=== PATIENT | female | born 1955 | race Caucasian/White ===

== ENCOUNTER 2019-11-02 18:17 | IRF | payer OTHER, SELFPAY ==
--- NOTE | 2019-11-02 18:10 | ADMGEN ---
This patient, Melany Ramírez, was admitted to [facility] Room 223-02. Patient/family oriented to hospital policies and general routines including ID bracelet, bed and alarms, visiting hours, pain management, procedures, bathroom and other care routines, personal items, smoking policy, room service/diet, and visiting hours. Valuables list has been completed. Information on how to activate the Rapid Response Team has been discussed. Patient/Family are encouraged to report perceived risks to care and to ask questions if they do not understand what they are told or what they should do.
[2019-11-02 18:28] VITALS: BMI 31.4
[2019-11-02 18:41] VITALS: BP 156/81; PULSE 75; RESP 20; TEMP 37; O2SAT 94
[2019-11-02 18:42] VITALS: BMI 31.4
[2019-11-02] MEDS: HEPARIN SODIUM 5,000 UNITS/ML VIAL 5000 UNITS SUB-Q (21:05)
[2019-11-02] MEDS: ROSUVASTATIN 10 MG TABLET PO (21:05)
[2019-11-02 22:00] VITALS: BP 158/77; PULSE 77; RESP 18; TEMP 37.4; O2SAT 98
[2019-11-02 22:25] VITALS: PULSE 80
[2019-11-02] MEDS: METOPROLOL TARTRATE 50 MG TAB PO (22:25)
[2019-11-02] MEDS: ACETAMINOPHEN 325 MG TABLET 650 MG PO (22:28)
[2019-11-03 05:07] LABS: Basophils Percent Auto 0.5 % (0.2-1.2); Eosinophils Absolute Auto 0.1 K/mm3 (0-0.3); Hematocrit 29.6 % (37.0-47.0); Hemoglobin 9.5 g/dL (12.0-15.0); Immature Granulocyte Absolute 0.02 K/mm3 (0.00-0.031); Immature Granulocyte Percent A 0.3 % (0-0.5); Lymphocytes Absolute Auto 1.16 K/mm3 (0.9-3.2); Lymphocytes Percent Auto 19.3 % (18.3-44.2); Mean Corpuscular HGB Conc 32.1 g/dl (32-36); Mean Corpuscular Hemoglobin 32.8 pg (26-34); Mean Corpuscular Volume 102.1 fl (80-100); Mean Platelet Volume 10.2 fl (7.4-10.4); Monocytes Absolute Auto 0.5 K/mm3 (0.1-0.6); Monocytes Percent Auto 7.7 % (2.6-8.5); Neutrophils Absolute Auto 4.2 K/mm3 (1.3-6.7); Neutrophils Percent Auto 70.2 % (45.5-73.1); Platelet Count Result 445 k/mm3 (150-375); Red Cell Distribution Width 13.1 % (11.5-14.5)
[2019-11-03 05:23] LABS: Blood Urea Nitrogen 15 mg/dL (7-17); Calcium 8.6 mg/dL (8.4-10.2); Carbon Dioxide 28 mmol/L (22-30); Chloride 105 mmol/L (98-107); Estimated CRCL calculation 50 ml/min; Estimated Glomerular Filt Rate 50; Glucose 96 mg/dL (65-105); Sodium 140 mmol/L (137-145)
[2019-11-03] MEDS: ACETAMINOPHEN 325 MG TABLET 650 MG PO ×3 (05:53→17:20)
[2019-11-03] MEDS: HEPARIN SODIUM 5,000 UNITS/ML VIAL 5000 UNITS SUB-Q ×3 (05:54→20:11)
[2019-11-03 06:00] VITALS: BP 132/70; PULSE 72; RESP 18; TEMP 36.8; O2SAT 97
[2019-11-03 08:00] VITALS: PULSE 72; RESP 18; O2SAT 97
[2019-11-03 08:15] VITALS: PULSE 72
[2019-11-03] MEDS: ASPIRIN 81 MG CHEWABLE TABLET PO (08:15)
[2019-11-03] MEDS: SERTRALINE HCL 50 MG TABLET PO (08:15)
[2019-11-03] MEDS: CHLORHEXIDINE GLUCONATE 0.12% ORAL RINSE 473 ML BTL (*BKC) 15 ML SWISH/SPIT ×2 (08:15→17:19)
[2019-11-03] MEDS: DOCUSATE SODIUM 100 MG CAPSULE PO (08:15)
[2019-11-03] MEDS: METOPROLOL TARTRATE 50 MG TAB PO ×2 (08:15→20:10)
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
[2019-11-03 12:51] VITALS: BMI 31.4
[2019-11-03] MEDS: POTASSIUM CHLORIDE 10 MEQ TABLET PO (13:57)
[2019-11-03 14:00] VITALS: BP 147/66; PULSE 64; RESP 20; TEMP 37.1; O2SAT 98
[2019-11-03 20:10] VITALS: PULSE 80
[2019-11-03] MEDS: ROSUVASTATIN 10 MG TABLET PO (20:11)
[2019-11-03 21:49] VITALS: BP 149/73; PULSE 69; RESP 16; TEMP 36.7; O2SAT 98
[2019-11-04] MEDS: ACETAMINOPHEN 325 MG TABLET 650 MG PO ×4 (00:14→16:57)
[2019-11-04] MEDS: HEPARIN SODIUM 5,000 UNITS/ML VIAL 5000 UNITS SUB-Q ×3 (05:25→20:13)
[2019-11-04 06:00] VITALS: BP 145/78; PULSE 81; RESP 16; TEMP 36.6; O2SAT 99
[2019-11-04 08:00] VITALS: PULSE 81
[2019-11-04] MEDS: DOCUSATE SODIUM 100 MG CAPSULE PO (08:00)
[2019-11-04] MEDS: METOPROLOL TARTRATE 50 MG TAB PO ×2 (08:00→20:13)
[2019-11-04] MEDS: POTASSIUM CHLORIDE 20 MEQ TABLET.ER PO (08:00)
[2019-11-04] MEDS: SERTRALINE HCL 50 MG TABLET PO (08:01)
[2019-11-04] MEDS: ASPIRIN 81 MG CHEWABLE TABLET PO (08:01)
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
[2019-11-04] MEDS: FENOFIBRATE,MICRONIZED 48 MG TABLET PO (11:37)
[2019-11-04] MEDS: CHLORHEXIDINE GLUCONATE 0.12% ORAL RINSE 473 ML BTL (*BKC) 15 ML SWISH/SPIT ×2 (11:37→16:58)
--- NOTE | 2019-11-04 12:26 | WPDNEURORHBP ---
Subjective Date/time seen: 11/04/19 12:26 Interval history: this 64-year-old woman is here after having had traumatic intracranial hemorrhage / brain contusion along with C2, C3, C4 fracture, bilateral rib fractures and sternal fracture and multiple complications post and injury which have been summarized in my initial history and physical examination The patient has today is definitely better and more lucid more alert however unable to recall the previous events she denies any headache nausea vomiting chest pain shortness of fever chills or sore throat Review of Systems Review of Systems: All systems reviewed & are unremarkable except as noted in HPI and below Functional Status Ambulation Ability Ability to Ambulate 10 Feet: Minimum Assistance X 1 Ability to Ambulate 50 Feet With 2 Turns: Minimum Assistance X 1 Ability to Ambulate 150 Feet: Minimum Assistance X 1 Ambulation Assistive Devices: Railings Transfers Ability Ability to Transfer In/Out of Chair: Minimum Assistance X 1 Exam Const: General: comfortable and no acute distress HENMT: General nose exam: Normal nares present Mouth: Yes moist mucous membranes Eyes: General: appearance normal, both eyes and all related structures Neck: Neck: no JVD Resp: Effort & Inspection: normal respiratory effort Auscultation: clear to auscultation bilaterally Cardio: Rate: regular rate Rhythm: regular rhythm GI: GI Palp: Yes Soft to palpation Auscultation: normal bowel sounds Skin: General skin exam: normal color and no rashes or lesions noted Neuro: Other: patient is awake alert oriented x3 however does not have any recollection of the events happening after the injury; she is generally weak and fatigued and has pains but overall better and engage in therapy and working with it Extrem: General: normal to inspection Other: she has right thumb spica and also I little sutures in her right forearm which will need to come out any effusion Psych: Mental Status: mental status grossly normal Objective Data Vital Signs Vital Signs: Vital Signs - 24 hr 11/03/19 14:00 11/03/19 20:10 11/03/19 21:49 Temperature 37.1 C 36.7 C Pulse Rate 64 80 69 Respiratory Rate 20 16 Blood Pressure 147/66 H 149/73 H Pulse Oximetry 98 98 11/04/19 06:00 11/04/19 08:00 Temperature 36.6 C Pulse Rate 81 81 Respiratory Rate 16 Blood Pressure 145/78 H Pulse Oximetry 99 Intake/Output Intake/Output: Intake & Output 11/01/19 11/02/19 11/03/19 11/04/19 23:59 23:59 23:59 23:59 Intake Total 960 120 Balance 960 120 Meds/Results Medications: Active Medications Generic Name Dose Route Start Last Admin Trade Name Freq PRN Reason Stop Dose Admin Acetaminophen 650 mg 11/02/19 21:50 11/04/19 11:39 Tylenol Tablet PO 650 mg Q6HR LEWIS Administration Aspirin 81 mg 11/03/19 08:00 11/04/19 08:01 Aspirin Chewable PO 81 mg DAILY@0800 LEWIS Administration Chlorhexidine Gluconate 15 ml 11/03/19 09:00 11/04/19 11:37 Peridex SWISH/SPIT 15 ml BID [facility] Administration Docusate Sodium 100 mg 11/03/19 09:00 11/04/19 08:00 Colace Capsule PO 100 mg DAILY LEWIS Administration Fenofibrate 48 mg 11/04/19 09:00 11/04/19 11:37 Tricor PO 12/03/19 09:01 48 mg DAILY LEWIS Administration Heparin Sodium (Porcine) 5,000 units 11/02/19 22:00 11/04/19 05:25 Heparin Sodium SUB-Q 5,000 units Q8HR LEWIS Administration Metoprolol Tartrate 50 mg 11/02/19 21:50 11/04/19 08:00 Lopressor PO 50 mg Q12HR LEWIS Administration Oxycodone HCl 5 mg 11/02/19 19:33 11/04/19 11:37 Roxicodone Ir Tablet PO 5 mg Q4H PRN Administration Pain Polyethylene Glycol 17 gm 11/02/19 19:41 Miralax PO DAILY PRN CONSTIPATION Potassium Chloride 20 meq 11/04/19 08:00 11/04/19 08:00 Kcl Tablet PO 20 meq DAILY@0800 LEWIS Administration Rosuvastatin Calcium 10 mg 11/02/19 21:00 11/03/19 20:11 Crestor PO 10 mg H
[2019-11-04 14:00] VITALS: BP 139/70; PULSE 65; RESP 20; TEMP 36.6; O2SAT 99
[2019-11-04 20:13] VITALS: PULSE 80
[2019-11-04] MEDS: ROSUVASTATIN 10 MG TABLET PO (20:13)
[2019-11-04 22:00] VITALS: BP 138/74; PULSE 70; RESP 16; TEMP 36.4; O2SAT 96
[2019-11-05] MEDS: HEPARIN SODIUM 5,000 UNITS/ML VIAL 5000 UNITS SUB-Q ×3 (05:35→21:11)
[2019-11-05] MEDS: ACETAMINOPHEN 325 MG TABLET 650 MG PO ×3 (05:36→17:42)
[2019-11-05 06:00] VITALS: BP 153/85; PULSE 72; RESP 16; TEMP 36.5; O2SAT 95
[2019-11-05 08:00] VITALS: PULSE 83; RESP 16; O2SAT 96
[2019-11-05] MEDS: ASPIRIN 81 MG CHEWABLE TABLET PO (09:57)
[2019-11-05] MEDS: CHLORHEXIDINE GLUCONATE 0.12% ORAL RINSE 473 ML BTL (*BKC) 15 ML SWISH/SPIT ×2 (09:57→17:41)
[2019-11-05] MEDS: POTASSIUM CHLORIDE 20 MEQ TABLET.ER PO (09:57)
[2019-11-05 09:58] VITALS: PULSE 72
[2019-11-05] MEDS: FENOFIBRATE,MICRONIZED 48 MG TABLET PO (09:58)
[2019-11-05] MEDS: METOPROLOL TARTRATE 50 MG TAB PO ×2 (09:58→21:10)
[2019-11-05] MEDS: DOCUSATE SODIUM 100 MG CAPSULE PO (09:58)
[2019-11-05] MEDS: SERTRALINE HCL 50 MG TABLET PO (09:59)
[2019-11-05 14:00] VITALS: BP 134/76; PULSE 83; RESP 16; TEMP 37; O2SAT 96
--- NOTE | 2019-11-05 16:20 | PCCCNOTE ---
On 11/05/19, the student, [Iron aBnsal ], provided care and completed [facility] documentation on this patient. I have reviewed the student's documentation and agree with the findings.
[2019-11-05 21:10] VITALS: PULSE 88
[2019-11-05] MEDS: ROSUVASTATIN 10 MG TABLET PO (21:10)
[2019-11-05 22:00] VITALS: BP 134/78; PULSE 74; RESP 16; TEMP 36.3; O2SAT 97
[2019-11-06 06:00] VITALS: BP 146/72; PULSE 72; RESP 16; TEMP 36.6; O2SAT 96
[2019-11-06] MEDS: ACETAMINOPHEN 325 MG TABLET 650 MG PO ×3 (06:34→17:49)
[2019-11-06] MEDS: HEPARIN SODIUM 5,000 UNITS/ML VIAL 5000 UNITS SUB-Q (06:35)
[2019-11-06 08:54] VITALS: PULSE 72
[2019-11-06] MEDS: POTASSIUM CHLORIDE 20 MEQ TABLET.ER PO (08:54)
[2019-11-06] MEDS: CHLORHEXIDINE GLUCONATE 0.12% ORAL RINSE 473 ML BTL (*BKC) 15 ML SWISH/SPIT ×2 (08:54→17:49)
[2019-11-06] MEDS: ASPIRIN 81 MG CHEWABLE TABLET PO (08:54)
[2019-11-06] MEDS: METOPROLOL TARTRATE 50 MG TAB PO ×2 (08:54→20:36)
[2019-11-06] MEDS: SERTRALINE HCL 50 MG TABLET PO (08:54)
[2019-11-06] MEDS: FENOFIBRATE,MICRONIZED 48 MG TABLET PO (08:54)
[2019-11-06] MEDS: DOCUSATE SODIUM 100 MG CAPSULE PO (08:59)
--- NOTE | 2019-11-06 13:09 | PCDIET ---
Nutrition Follow-Up Complete: Nutrition Diagnosis: Suboptimal oral intake related to decreased appetite as evidenced by patient statements, intake of 10% x 1. Nutrition Goal: Patient to consume 50% of meals or greater. Goal in progress. Average intake has been 36% of meals since 11/04/19 on soft and bite size diet. Patient receiving Thrive Ice Cream (270kcal, 9g protein) BID and reports taking consistently. Last recorded weight is 85.7 kg. Recommend obtaining new weight. Bowel Motility: Last documented BM on 11/04/19. Labs Reviewed: No new labs available. Meds Noted: Colace, Miralax, KCl Additional Notes: Lacerations to left eyebrow and right lower arm. Left upper torso incision. No documented pressure sores. Will continue to monitor with same goal. Nutrition Monitoring and Evaluation: Follow up every 5 days.
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
[2019-11-06 14:00] VITALS: BP 122/71; PULSE 77; RESP 18; TEMP 36.4; O2SAT 94
[2019-11-06 20:36] VITALS: PULSE 80
[2019-11-06] MEDS: ROSUVASTATIN 10 MG TABLET PO (20:36)
[2019-11-06 22:00] VITALS: BP 145/66; PULSE 70; RESP 18; TEMP 36.7; O2SAT 98
[2019-11-07 04:58] LABS: Blood Urea Nitrogen 10 mg/dL (7-17); Calcium 8.9 mg/dL (8.4-10.2); Carbon Dioxide 28 mmol/L (22-30); Chloride 105 mmol/L (98-107); Estimated CRCL calculation 54 ml/min; Estimated Glomerular Filt Rate 56; Glucose 111 mg/dL (65-105); Potassium 3.2 mmol/L (3.4-5.0); Sodium 141 mmol/L (137-145)
[2019-11-07] MEDS: ACETAMINOPHEN 325 MG TABLET 650 MG PO ×3 (05:48→17:34)
[2019-11-07 06:00] VITALS: BP 122/60; PULSE 76; RESP 16; TEMP 37.2; O2SAT 98
[2019-11-07 09:00] VITALS: PULSE 68; RESP 18; O2SAT 95
[2019-11-07 10:00] VITALS: PULSE 77
[2019-11-07] MEDS: FENOFIBRATE,MICRONIZED 48 MG TABLET PO (10:00)
[2019-11-07] MEDS: SERTRALINE HCL 50 MG TABLET PO (10:00)
[2019-11-07] MEDS: METOPROLOL TARTRATE 50 MG TAB PO ×2 (10:00→19:34)
[2019-11-07] MEDS: POTASSIUM CHLORIDE 20 MEQ TABLET.ER PO (10:00)
[2019-11-07] MEDS: ASPIRIN 81 MG CHEWABLE TABLET PO (10:00)
[2019-11-07] MEDS: CHLORHEXIDINE GLUCONATE 0.12% ORAL RINSE 473 ML BTL (*BKC) 15 ML SWISH/SPIT ×2 (10:01→17:33)
[2019-11-07] MEDS: DOCUSATE SODIUM 100 MG CAPSULE PO (10:01)
[2019-11-07 14:00] VITALS: BP 143/69; PULSE 68; RESP 18; TEMP 36.4; O2SAT 95
--- NOTE | 2019-11-07 16:15 | WPDNEURORHBP ---
Subjective Date/time seen: 11/07/19 16:15 Interval history: this 64-year-old woman is here with diagnosis of a brain contusion /intracranial hemorrhage and multiple fractures involving bilateral ribs and multiple issues related to rib fractures she is wearing the hard [place] cervical collar doing fairly well she denies any new neurological complaints 3 weakness is improving she is engage in therapy she denies in particular any headache nausea vomiting chest pain shortness of breath fever chills sore throat Review of Systems Review of Systems: All systems reviewed & are unremarkable except as noted in HPI and below Functional Status Ambulation Ability Ability to Ambulate 10 Feet: Contact Guard Ability to Ambulate 50 Feet With 2 Turns: Contact Guard Ability to Ambulate 150 Feet: Contact Guard Ambulation Assistive Devices: Cane Transfers Ability Ability to Transfer In/Out of Chair: Minimum Assistance X 1 Exam Const: General: comfortable and no acute distress HENMT: General nose exam: Normal nares present Mouth: Yes moist mucous membranes Eyes: General: appearance normal, both eyes and all related structures Neck: Neck: supple and no JVD Resp: Effort & Inspection: normal respiratory effort Auscultation: clear to auscultation bilaterally Cardio: Rate: regular rate Rhythm: regular rhythm GI: GI Palp: Yes Soft to palpation Auscultation: normal bowel sounds Skin: General skin exam: normal color and no rashes or lesions noted Neuro: Other: patient is awake alert well oriented time place person is speech and language functions are normal and her strength is improving Extrem: General: normal to inspection Psych: Mental Status: mental status grossly normal Objective Data Vital Signs Vital Signs: Vital Signs - 24 hr 11/06/19 20:36 11/06/19 22:00 11/07/19 06:00 Temperature 36.7 C 37.2 C Pulse Rate 80 70 76 Respiratory Rate 18 16 Blood Pressure 145/66 H 122/60 Pulse Oximetry 98 98 11/07/19 09:00 11/07/19 10:00 11/07/19 14:00 Temperature 36.4 C Pulse Rate 68 77 68 Respiratory Rate 18 18 Blood Pressure 143/69 H Pulse Oximetry 95 95 Intake/Output Intake/Output: Intake & Output 11/04/19 11/05/19 11/06/19 11/07/19 23:59 23:59 23:59 23:59 Intake Total 600 360 920 720 Balance 600 360 920 720 Meds/Results Medications: Active Medications Generic Name Dose Route Start Last Admin Trade Name Brenda PRN Reason Stop Dose Admin Acetaminophen 650 mg 11/02/19 21:50 11/07/19 12:34 Tylenol Tablet PO 650 mg Q6HR LEWIS Administration Aspirin 81 mg 11/03/19 08:00 11/07/19 10:00 Aspirin Chewable PO 81 mg DAILY@0800 [facility] Administration Chlorhexidine Gluconate 15 ml 11/03/19 09:00 11/07/19 10:01 Peridex SWISH/SPIT 15 ml BID [facility] Administration Docusate Sodium 100 mg 11/03/19 09:00 11/07/19 10:01 Colace Capsule PO 100 mg DAILY [facility] Administration Fenofibrate 48 mg 11/04/19 09:00 11/07/19 10:00 Tricor PO 12/03/19 09:01 48 mg DAILY [facility] Administration Metoprolol Tartrate 50 mg 11/02/19 21:50 11/07/19 10:00 Lopressor PO 50 mg Q12HR [facility] Administration Oxycodone HCl 5 mg 11/02/19 19:33 11/07/19 13:35 Roxicodone Ir Tablet PO 5 mg Q4H PRN Administration Pain Polyethylene Glycol 17 gm 11/02/19 19:41 Miralax PO DAILY PRN CONSTIPATION Potassium Chloride 20 meq 11/04/19 08:00 11/07/19 10:00 Kcl Tablet PO 20 meq DAILY@0800 [facility] Administration Rosuvastatin Calcium 10 mg 11/02/19 21:00 11/06/19 20:36 Crestor PO 10 mg HS [facility] Administration Sertraline HCl 50 mg 11/03/19 09:00 11/07/19 10:00 Zoloft PO 50 mg DAILY [facility]WIS Administration Labs Labs: Laboratory Results - last 24 hr 11/07/19 04:25 Sodium 141 Potassium 3.2 L Chloride 105 Carbon Dioxide 28 BUN 10 D Creatinine 1.00 Estim Creat Clear Calc 54 Estimated GFR 56 L Glucose 111 H Calcium 8.9 Progres
[2019-11-07 19:30] VITALS: BP 145/66; PULSE 80; RESP 18; TEMP 37.1; O2SAT 95
[2019-11-07 19:34] VITALS: PULSE 80
[2019-11-07] MEDS: ROSUVASTATIN 10 MG TABLET PO (19:34)
[2019-11-08] MEDS: ACETAMINOPHEN 325 MG TABLET 650 MG PO ×5 (00:02→23:51)
[2019-11-08 05:30] VITALS: BP 142/79; PULSE 74; RESP 18; TEMP 36.5; O2SAT 94
[2019-11-08] MEDS: ASPIRIN 81 MG CHEWABLE TABLET PO (08:42)
[2019-11-08] MEDS: SERTRALINE HCL 50 MG TABLET PO (08:43)
[2019-11-08] MEDS: FENOFIBRATE,MICRONIZED 48 MG TABLET PO (08:43)
[2019-11-08] MEDS: POTASSIUM CHLORIDE 20 MEQ TABLET.ER PO (08:43)
[2019-11-08] MEDS: METOPROLOL TARTRATE 50 MG TAB PO ×2 (08:43→20:06)
[2019-11-08] MEDS: DOCUSATE SODIUM 100 MG CAPSULE PO (08:47)
[2019-11-08 14:00] VITALS: BP 131/63; PULSE 71; RESP 17; TEMP 36.6; O2SAT 95
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
[2019-11-08] MEDS: CHLORHEXIDINE GLUCONATE 0.12% ORAL RINSE 473 ML BTL (*BKC) 15 ML SWISH/SPIT (18:26)
[2019-11-08 20:06] VITALS: PULSE 78
[2019-11-08] MEDS: ROSUVASTATIN 10 MG TABLET PO (20:06)
[2019-11-08 22:00] VITALS: BP 173/80; PULSE 81; RESP 16; TEMP 36.6; O2SAT 100
[2019-11-09] MEDS: ACETAMINOPHEN 325 MG TABLET 650 MG PO ×3 (05:29→17:26)
[2019-11-09 06:00] VITALS: BP 153/84; PULSE 77; RESP 18; TEMP 36.3; O2SAT 97
[2019-11-09] MEDS: POTASSIUM CHLORIDE 20 MEQ TABLET.ER PO (08:40)
[2019-11-09] MEDS: ASPIRIN 81 MG CHEWABLE TABLET PO (08:40)
[2019-11-09] MEDS: CHLORHEXIDINE GLUCONATE 0.12% ORAL RINSE 473 ML BTL (*BKC) 15 ML SWISH/SPIT ×2 (08:41→17:26)
[2019-11-09 08:42] VITALS: PULSE 77
[2019-11-09] MEDS: SERTRALINE HCL 50 MG TABLET PO (08:42)
[2019-11-09] MEDS: FENOFIBRATE,MICRONIZED 48 MG TABLET PO (08:42)
[2019-11-09] MEDS: METOPROLOL TARTRATE 50 MG TAB PO ×2 (08:42→20:05)
[2019-11-09] MEDS: DOCUSATE SODIUM 100 MG CAPSULE PO (08:44)
[2019-11-09 14:00] VITALS: BP 121/77; PULSE 72; RESP 16; TEMP 36.6; O2SAT 98
[2019-11-09 20:05] VITALS: PULSE 76
[2019-11-09] MEDS: ROSUVASTATIN 10 MG TABLET PO (20:06)
[2019-11-09 22:00] VITALS: BP 149/69; PULSE 76; RESP 18; TEMP 36.8; O2SAT 97
[2019-11-10] MEDS: ACETAMINOPHEN 325 MG TABLET 650 MG PO ×5 (02:37→23:32)
[2019-11-10 06:00] VITALS: BP 131/67; PULSE 67; RESP 18; TEMP 36.8; O2SAT 97
[2019-11-10 09:45] VITALS: PULSE 67
[2019-11-10] MEDS: ASPIRIN 81 MG CHEWABLE TABLET PO (09:45)
[2019-11-10] MEDS: POTASSIUM CHLORIDE 20 MEQ TABLET.ER PO (09:45)
[2019-11-10] MEDS: METOPROLOL TARTRATE 50 MG TAB PO ×2 (09:45→20:06)
[2019-11-10] MEDS: FENOFIBRATE,MICRONIZED 48 MG TABLET PO (09:46)
[2019-11-10] MEDS: SERTRALINE HCL 50 MG TABLET PO (09:46)
--- NOTE | 2019-11-10 11:19 | PC.NURSE ---
spoke with Dr March regarding sutures that were placed at [facility] by ED physician on approximately 10/15. received order from Dr March that we may remove sutures at this time.
[2019-11-10] MEDS: DOCUSATE SODIUM 100 MG CAPSULE PO (12:10)
[2019-11-10] MEDS: CHLORHEXIDINE GLUCONATE 0.12% ORAL RINSE 473 ML BTL (*BKC) 15 ML SWISH/SPIT ×2 (12:10→15:29)
[2019-11-10 14:00] VITALS: BP 124/60; PULSE 72; RESP 18; TEMP 36.5; O2SAT 98
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
[2019-11-10 20:06] VITALS: PULSE 72
[2019-11-10] MEDS: ROSUVASTATIN 10 MG TABLET PO (20:06)
[2019-11-10 22:00] VITALS: BP 131/66; PULSE 57; RESP 18; TEMP 36.2; O2SAT 98
[2019-11-11] MEDS: ACETAMINOPHEN 325 MG TABLET 650 MG PO ×3 (05:36→16:49)
[2019-11-11 06:00] VITALS: BP 138/64; PULSE 69; RESP 16; TEMP 36.5; O2SAT 96
[2019-11-11] MEDS: CHLORHEXIDINE GLUCONATE 0.12% ORAL RINSE 473 ML BTL (*BKC) 15 ML SWISH/SPIT ×2 (09:57→16:49)
[2019-11-11] MEDS: POTASSIUM CHLORIDE 20 MEQ TABLET.ER PO (09:57)
[2019-11-11] MEDS: DOCUSATE SODIUM 100 MG CAPSULE PO (09:57)
[2019-11-11] MEDS: FENOFIBRATE,MICRONIZED 48 MG TABLET PO (09:57)
[2019-11-11] MEDS: ASPIRIN 81 MG CHEWABLE TABLET PO (09:57)
[2019-11-11] MEDS: METOPROLOL TARTRATE 50 MG TAB PO ×2 (09:58→20:36)
[2019-11-11] MEDS: SERTRALINE HCL 50 MG TABLET PO (09:58)
--- NOTE | 2019-11-11 11:40 | PCDIET ---
Nutrition Follow-Up Complete: Nutrition Diagnosis: Suboptimal oral intake related to decreased appetite as evidenced by patient statements, intake of 10% x 1. Nutrition Goal: Patient to consume 50% of meals or greater. Goal met. Average intake from last review has been just over 60% of meals on soft and bite size diet. Continues on [employer] BID. Last recorded weight is 85.7 kg. Recommend obtaining new weight. Bowel Motility: Last BM on 11/09/19, per nursing flowsheet. Labs Reviewed: Glu (111), K (3.2) Meds Noted: Colace, Miralax, KCl Additional Notes: Right lower arm and left eyebrow lacerations. Left upper torso incision. No documented pressure ulcers. Nutrition Monitoring and Evaluation: Follow up every 5 days.
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
[2019-11-11 14:00] VITALS: BP 128/66; PULSE 74; RESP 20; TEMP 36.6; O2SAT 97
[2019-11-11 20:36] VITALS: PULSE 74
[2019-11-11] MEDS: ROSUVASTATIN 10 MG TABLET PO (20:38)
[2019-11-11 22:00] VITALS: BP 132/70; PULSE 72; RESP 18; TEMP 36.8; O2SAT 96
[2019-11-12] MEDS: ACETAMINOPHEN 325 MG TABLET 650 MG PO ×3 (05:53→17:05)
[2019-11-12 06:00] VITALS: BP 143/70; PULSE 64; RESP 17; TEMP 36.4; O2SAT 97
[2019-11-12] MEDS: ASPIRIN 81 MG CHEWABLE TABLET PO (09:01)
[2019-11-12] MEDS: POTASSIUM CHLORIDE 20 MEQ TABLET.ER PO (09:01)
[2019-11-12 09:02] VITALS: PULSE 64
[2019-11-12] MEDS: DOCUSATE SODIUM 100 MG CAPSULE PO (09:02)
[2019-11-12] MEDS: METOPROLOL TARTRATE 50 MG TAB PO ×2 (09:02→20:14)
[2019-11-12] MEDS: FENOFIBRATE,MICRONIZED 48 MG TABLET PO (09:02)
[2019-11-12] MEDS: SERTRALINE HCL 50 MG TABLET PO (09:02)
[2019-11-12] MEDS: CHLORHEXIDINE GLUCONATE 0.12% ORAL RINSE 473 ML BTL (*BKC) 15 ML SWISH/SPIT ×2 (09:02→17:05)
--- NOTE | 2019-11-12 10:53 | WPDNEURORHBP ---
Subjective Date/time seen: 11/12/19 10:53 this 64-year-old is here because of brain contusion and multiple fractures she has done well in over rehab and make progress and the she denies any headache nausea vomiting chest pain shortness of breath fever chills sore throat Review of Systems Review of Systems: All systems reviewed & are unremarkable except as noted in HPI and below Functional Status Ambulation Ability Ability to Ambulate 10 Feet: Independent Ability to Ambulate 50 Feet With 2 Turns: Independent Ability to Ambulate 150 Feet: Independent Ambulation Assistive Devices: Cane Transfers Ability Ability to Transfer In/Out of Chair: Independent Exam Const: General: comfortable and no acute distress HENMT: General nose exam: Normal nares present Mouth: Yes moist mucous membranes Other: the wiring for the [place] below or dental injury as in place so is the hard [place] cervical collar Eyes: General: appearance normal, both eyes and all related structures Neck: Neck: supple and no JVD Other: wearing hard [place] cervical collar Resp: Auscultation: clear to auscultation bilaterally Cardio: Rate: regular rate Rhythm: regular rhythm GI: Auscultation: normal bowel sounds Skin: General skin exam: normal color and no rashes or lesions noted Neuro: Other: patient's has significantly improved from the point we received her from the other hospital her cognition has improved her generalize strength has improved she is walking much better and the will be discharged November 13, 2019 Extrem: General: normal to inspection Psych: Mental Status: mental status grossly normal Objective Data Vital Signs Vital Signs: Vital Signs - 24 hr 11/12/19 14:00 11/12/19 20:14 11/12/19 22:00 Temperature 36.6 C 36.1 C L Pulse Rate 66 72 70 Respiratory Rate 18 18 Blood Pressure 153/75 H 125/66 Pulse Oximetry 100 97 11/13/19 06:00 11/13/19 08:00 11/13/19 08:34 Temperature 36.2 C L Pulse Rate 72 72 72 Respiratory Rate 18 18 Blood Pressure 137/65 Pulse Oximetry 96 96 Intake/Output Intake/Output: Intake & Output 11/10/19 11/11/19 11/12/19 11/13/19 23:59 23:59 23:59 23:59 Intake Total 720 720 720 240 Balance 720 720 720 240 Meds/Results Medications: Active Medications Generic Name Dose Route Start Last Admin Trade Name Freq PRN Reason Stop Dose Admin Acetaminophen 650 mg 11/02/19 21:50 11/13/19 05:35 Tylenol Tablet PO 650 mg Q6HR LEWIS Administration Aspirin 81 mg 11/03/19 08:00 11/13/19 08:34 Aspirin Chewable PO 81 mg DAILY@0800 LEWIS Administration Chlorhexidine Gluconate 15 ml 11/03/19 09:00 11/13/19 08:35 Peridex SWISH/SPIT 15 ml BID LEWIS Administration Docusate Sodium 100 mg 11/03/19 09:00 11/13/19 08:35 Colace Capsule PO 100 mg DAILY LEWIS Administration Fenofibrate 48 mg 11/04/19 09:00 11/13/19 08:34 Tricor PO 12/03/19 09:01 48 mg DAILY LEWIS Administration Metoprolol Tartrate 50 mg 11/02/19 21:50 11/13/19 08:34 Lopressor PO 50 mg Q12HR LEWIS Administration Oxycodone HCl 5 mg 11/02/19 19:33 11/13/19 08:40 Roxicodone Ir Tablet PO 5 mg Q4H PRN Administration Pain Polyethylene Glycol 17 gm 11/02/19 19:41 Miralax PO DAILY PRN CONSTIPATION Potassium Chloride 20 meq 11/04/19 08:00 11/13/19 08:34 Kcl Tablet PO 20 meq DAILY@0800 LEWIS Administration Rosuvastatin Calcium 10 mg 11/02/19 21:00 11/12/19 20:14 Crestor PO 10 mg HS LEWIS Administration Sertraline HCl 50 mg 11/03/19 09:00 11/13/19 08:34 Zoloft PO 50 mg DAILY LEWIS Administration Progress Note: A&P Assessment and Plan (1) Brain contusion: Code(s): S06.2X9A - Diffuse traumatic brain injury with loss of consciousness of unspecified duration, initial encounter Status: Acute (2) Pneumomediastinum: Code(s): J98.2 - Interstitial emphysema Status: Acute (3) Pulmonary contusion: Code(
[2019-11-12 14:00] VITALS: BP 153/75; PULSE 66; RESP 18; TEMP 36.6; O2SAT 100
[2019-11-12 20:14] VITALS: PULSE 72
[2019-11-12] MEDS: ROSUVASTATIN 10 MG TABLET PO (20:14)
[2019-11-12 22:00] VITALS: BP 125/66; PULSE 70; RESP 18; TEMP 36.1; O2SAT 97
[2019-11-13] MEDS: ACETAMINOPHEN 325 MG TABLET 650 MG PO ×3 (05:35→17:39)
[2019-11-13 06:00] VITALS: BP 137/65; PULSE 72; RESP 18; TEMP 36.2; O2SAT 96
[2019-11-13 08:00] VITALS: PULSE 72; RESP 18; O2SAT 96
[2019-11-13 08:34] VITALS: PULSE 72
[2019-11-13] MEDS: SERTRALINE HCL 50 MG TABLET PO (08:34)
[2019-11-13] MEDS: POTASSIUM CHLORIDE 20 MEQ TABLET.ER PO (08:34)
[2019-11-13] MEDS: ASPIRIN 81 MG CHEWABLE TABLET PO (08:34)
[2019-11-13] MEDS: METOPROLOL TARTRATE 50 MG TAB PO ×2 (08:34→20:47)
[2019-11-13] MEDS: FENOFIBRATE,MICRONIZED 48 MG TABLET PO (08:34)
[2019-11-13] MEDS: CHLORHEXIDINE GLUCONATE 0.12% ORAL RINSE 473 ML BTL (*BKC) 15 ML SWISH/SPIT ×2 (08:35→17:40)
[2019-11-13] MEDS: DOCUSATE SODIUM 100 MG CAPSULE PO (08:35)
--- NOTE | 2019-11-13 10:23 | WPDNEURORHBP ---
Subjective Date/time seen: 11/13/19 10:23 Interval history: this 64-year-old woman has been here because of brain contusion /intracranial hemorrhage multiple fractures she has finished over rehab quite well walking fairly good and her issue beside the ordered to 8 fracture and cervical collar is the dental issues for which she is going to follow up with a dentist patient will have home health PT OT in the follow-up with the physicians who have taken care of her at the tertiary care facility Patient is supposed to be discharged tomorrow medications will be case reconciled and she knew have follow-up she denies any headache nausea vomiting chest pain shortness of breath fever chills sore throat Review of Systems Review of Systems: All systems reviewed & are unremarkable except as noted in HPI and below Functional Status Ambulation Ability Ability to Ambulate 10 Feet: Independent Ability to Ambulate 50 Feet With 2 Turns: Independent Ability to Ambulate 150 Feet: Independent Ambulation Assistive Devices: Cane Transfers Ability Ability to Transfer In/Out of Chair: Independent Exam Const: General: comfortable and no acute distress HENMT: General nose exam: Normal nares present Mouth: Yes moist mucous membranes Eyes: General: appearance normal, both eyes and all related structures Neck: Neck: supple and no JVD Resp: Effort & Inspection: normal respiratory effort Auscultation: clear to auscultation bilaterally Cardio: Rate: regular rate Rhythm: regular rhythm GI: GI Palp: Yes Soft to palpation Auscultation: normal bowel sounds Skin: General skin exam: normal color and no rashes or lesions noted Neuro: Other: patient is awake alert and well oriented time place and person her mental status is clearing up and in fact cleared of most of the time she is not any distress the weakness which Sherrie Balderas she has had has improved to a point that she will be ready to be go home The weakness whatever she had with which she came to us after having had the fracture and be a brain contusion has significantly improved and she is walking much better and will be going home on with home health services Extrem: General: normal to inspection Psych: Mental Status: mental status grossly normal Objective Data Vital Signs Vital Signs: Vital Signs - 24 hr 11/12/19 14:00 11/12/19 20:14 11/12/19 22:00 Temperature 36.6 C 36.1 C L Pulse Rate 66 72 70 Respiratory Rate 18 18 Blood Pressure 153/75 H 125/66 Pulse Oximetry 100 97 11/13/19 06:00 11/13/19 08:00 11/13/19 08:34 Temperature 36.2 C L Pulse Rate 72 72 72 Respiratory Rate 18 18 Blood Pressure 137/65 Pulse Oximetry 96 96 Intake/Output Intake/Output: Intake & Output 11/10/19 11/11/19 11/12/19 11/13/19 23:59 23:59 23:59 23:59 Intake Total 720 720 720 240 Balance 720 720 720 240 Meds/Results Medications: Active Medications Generic Name Dose Route Start Last Admin Trade Name Freq PRN Reason Stop Dose Admin Acetaminophen 650 mg 11/02/19 21:50 11/13/19 05:35 Tylenol Tablet PO 650 mg Q6HR LEWIS Administration Aspirin 81 mg 11/03/19 08:00 11/13/19 08:34 Aspirin Chewable PO 81 mg DAILY@0800 LEWIS Administration Chlorhexidine Gluconate 15 ml 11/03/19 09:00 11/13/19 08:35 Peridex SWISH/SPIT 15 ml BID LEWIS Administration Docusate Sodium 100 mg 11/03/19 09:00 11/13/19 08:35 Colace Capsule PO 100 mg DAILY LEWIS Administration Fenofibrate 48 mg 11/04/19 09:00 11/13/19 08:34 Tricor PO 12/03/19 09:01 48 mg DAILY LEWIS Administration Metoprolol Tartrate 50 mg 11/02/19 21:50 11/13/19 08:34 Lopressor PO 50 mg Q12HR LEWIS Administration Oxycodone HCl 5 mg 11/02/19 19:33 11/13/19 08:40 Roxicodone Ir Tablet PO 5 mg Q4H PRN Administration Pain Polyethylene Glycol 17 gm 11/02/19 19:41 Miralax PO DAILY PRN CONSTIPATION Potassium Chloride 20 meq 11/04/19 08:00 07
[2019-11-13 14:00] VITALS: BP 128/83; PULSE 67; RESP 20; TEMP 35.8; O2SAT 100
[2019-11-13 20:47] VITALS: PULSE 70
[2019-11-13] MEDS: ROSUVASTATIN 10 MG TABLET PO (20:47)
[2019-11-13 22:00] VITALS: BP 149/68; PULSE 67; RESP 18; TEMP 35.5; O2SAT 100
[2019-11-14] MEDS: ACETAMINOPHEN 325 MG TABLET 650 MG PO ×2 (05:02→12:15)
[2019-11-14 05:43] VITALS: BP 135/74; PULSE 62; RESP 18; TEMP 35.3; O2SAT 100
[2019-11-14 08:00] VITALS: PULSE 62; RESP 18; O2SAT 100
[2019-11-14] MEDS: ASPIRIN 81 MG CHEWABLE TABLET PO (08:35)
[2019-11-14 08:36] VITALS: PULSE 62
[2019-11-14] MEDS: SERTRALINE HCL 50 MG TABLET PO (08:36)
[2019-11-14] MEDS: METOPROLOL TARTRATE 50 MG TAB PO (08:36)
[2019-11-14] MEDS: DOCUSATE SODIUM 100 MG CAPSULE PO (08:36)
[2019-11-14] MEDS: CHLORHEXIDINE GLUCONATE 0.12% ORAL RINSE 473 ML BTL (*BKC) 15 ML SWISH/SPIT (08:36)
[2019-11-14] MEDS: FENOFIBRATE,MICRONIZED 48 MG TABLET PO (08:36)
[2019-11-14] MEDS: POTASSIUM CHLORIDE 20 MEQ TABLET.ER PO (08:36)
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
== END 2019-11-14 13:10 | disposition home health service (06) | DRG 950 ==
PROVIDERS: Admitting Provider Psychiatry & Neurology Neurology; Visit Provider Psychiatry & Neurology Neurology
DX: S06.309D Unspecified focal traumatic brain injury with loss of consciousness of unspecified duration, subsequent encounter (principal); S12.300D Unspecified displaced fracture of fourth cervical vertebra, subsequent encounter for fracture with routine healing; S22.43XD Multiple fractures of ribs, bilateral, subsequent encounter for fracture with routine healing; S12.200D Unspecified displaced fracture of third cervical vertebra, subsequent encounter for fracture with routine healing; S22.20XD Unspecified fracture of sternum, subsequent encounter for fracture with routine healing; S27.322D Contusion of lung, bilateral, subsequent encounter; S02.67 Fracture of alveolus of mandible; S22.088D Other fracture of T11-T12 vertebra, subsequent encounter for fracture with routine healing; S15.1 Injury of vertebral artery; S92.352D Displaced fracture of fifth metatarsal bone, left foot, subsequent encounter for fracture with routine healing; S12.100D Unspecified displaced fracture of second cervical vertebra, subsequent encounter for fracture with routine healing; R47.1 Dysarthria and anarthria; V49.9XXD Car occupant (driver) (passenger) injured in unspecified traffic accident, subsequent encounter; J98.2 Interstitial emphysema; Z96.653 Presence of artificial knee joint, bilateral
CPT/HCPCS: 36415; 80048; 85025; 92523; 97110; 97116; 97162; 97165; 97530; 97535; 97542; A4248; A9270; J1644